=== PATIENT | male | born 1990 | race Caucasian/White ===

== ENCOUNTER 2018-08-03 12:58 | Inpatient (IN) | payer OTHER ==
[2018-08-03] MEDS ORDERED: Senna TAB PO PRN (15:15)
[2018-08-03] MEDS: Acetaminophen TAB* 325 MG PO PRN (15:47)
[2018-08-03] MEDS ORDERED: traMADol TAB* 50 MG PO PRN (16:20)
[2018-08-03] MEDS ORDERED: Magnesium Hydroxide LIQ* 30 ML UDC PO PRN (17:35)
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
[2018-08-03] MEDS: Docusate CAP* 100 MG PO SCH (21:14)
[2018-08-03] MEDS: Senna TAB PO SCH (21:14)
[2018-08-03] MEDS: Amoxicillin/Clavulanate TAB* 875 MG PO SCH (21:15)
[2018-08-03] MEDS: oxyCODONE TAB* 5 MG TAB PO PRN (21:17)
[2018-08-03] MEDS: Heparin VIAL(*) 5000 UNITS/ML VIAL (FIVE THOUSAND) SUBCUT SCH (21:18)
[2018-08-04] MEDS: Acetaminophen TAB* 325 MG PO PRN ×2 (00:04→06:11)
[2018-08-04] MEDS: Heparin VIAL(*) 5000 UNITS/ML VIAL (FIVE THOUSAND) SUBCUT SCH ×3 (06:11→21:37)
[2018-08-04] MEDS: oxyCODONE TAB* 5 MG TAB PO PRN ×4 (08:08→21:30)
[2018-08-04] MEDS: Amoxicillin/Clavulanate TAB* 875 MG PO SCH ×2 (08:09→22:14)
[2018-08-04] MEDS: Docusate CAP* 100 MG PO SCH ×2 (08:09→21:29)
[2018-08-04] MEDS ORDERED: Polyethylene Glycol 3350* 17 GM PACKET PO PRN (12:14)
[2018-08-04] MEDS: Cyclobenzaprine TAB* 10 MG PO PRN ×2 (14:44→21:30)
[2018-08-04] MEDS: Senna TAB PO SCH (21:29)
--- NOTE | 2018-08-04 21:46 | PN ---
Progress Note Date of Service: 08/04/18 Note: RENY SALINAS was visited. Therapy notes read and reviewed. He is having a bit of pain. Tramadol was ineffective, and oxycodone worked better but is constipating. Current Medications: Active Medications Generic Name Dose Route Start Last Admin Trade Name Freq PRN Reason Stop Dose Admin Acetaminophen 650 mg 08/03/18 15:15 08/04/18 06:11 Tylenol Tab* PO 650 mg Q6H PRN Administration FEVER/PAIN Amoxicillin/Clavulanate Potassium 875 mg 08/05/18 09:00 Augmentin 80 Mg/Ml Susp* Oralsyr PO BID SYLVIA Cyclobenzaprine HCl 10 mg 08/04/18 12:13 08/04/18 14:44 Flexeril Tab* PO 10 mg TID PRN Administration SPASMS Docusate Sodium 100 mg 08/03/18 21:00 08/04/18 08:09 Colace Cap* PO 100 mg BID SYLVIA Administration Heparin Sodium (Porcine) 5,000 units 08/03/18 22:00 08/04/18 14:32 Heparin Vial(*) SUBCUT 5,000 units Q8HR SYLVIA Administration Magnesium Hydroxide 30 ml 08/03/18 17:35 Milk Of Magnesia Liq* PO Q6H PRN CONSTIPATION Oxycodone HCl 5 mg 08/03/18 15:30 08/03/18 21:17 Roxycodone Tab* PO 5 mg Q4H PRN Administration PAIN - MODERATE TO SEVERE Oxycodone HCl 10 mg 08/03/18 23:14 08/04/18 16:44 Roxycodone Tab* PO 10 mg Q4H PRN Administration PAIN - SEVERE Polyethylene Glycol/Electrolytes 17 gm 08/04/18 12:14 Miralax* PO DAILY PRN CONSTIPATION Senna 2 tab 08/03/18 21:00 08/03/18 21:14 Senokot Tab* PO 2 tab BEDTIME SYLVIA Administration Tramadol HCl 50 mg 08/03/18 16:20 08/03/18 19:19 Ultram* PO 50 mg Q6H PRN Administration PAIN - MODERATE Vital Signs: Vital Signs Temp Pulse Resp BP Pulse Ox 98.5 F 101 16 128/61 98 08/04/18 14:47 08/04/18 14:47 08/04/18 19:17 08/04/18 14:47 08/04/18 14:47 Exam: GENERAL: Alert, in no distress LUNGS: Clear HEART: regular rhythm ABDOMEN: Soft, +BS EXTREMITIES: normal tone. peripheral pulses intact NEUROLOGIC: A&O. Moves all 4 extremities. Normal strength and sensation Assessment/Plan: 1. L1 Burst Fracture, S/P Percutaneous Pedicle Screw Fixation T11-L3: PT/OT. No heavy lifting 2. Closed Head INjury: Tested fine with TUCK POINTER 3. DVT Prophylaxis: Heparin S/Q 4. Constipation: Colace/Senokot. Miralax 5. Pneumonia: Augmentin, day /08/04/18 21:43
[2018-08-04] MEDS ORDERED: Amoxicillin/Clavulan* ORALSYR 80 MG/ML (400 MG/5 ML) PO ONE (22:00)
[2018-08-05] MEDS: Acetaminophen TAB* 325 MG PO PRN ×3 (04:53→21:46)
[2018-08-05] MEDS: oxyCODONE TAB* 5 MG TAB PO PRN ×3 (04:54→13:58)
[2018-08-05] MEDS: Heparin VIAL(*) 5000 UNITS/ML VIAL (FIVE THOUSAND) SUBCUT SCH ×3 (04:59→21:42)
[2018-08-05 06:01] LABS: ABS Basophils 0.1 10^3/ul (0-0.2); ABS Eosinophils 0.4 10^3/ul (0-0.6); ABS Lymphocytes 1.5 10^3/ul (1.0-4.8); ABS Monocytes 1.2 10^3/ul (0-0.8); ABS Neutrophils 6.6 10^3/ul (1.5-7.7); ABS Nucleated RBC 0 10^3/ul; Eosinophil % 4.2 %; Hematocrit 37 % (36-46); Hemoglobin 12.6 g/dL (14.0-18.0); Lymphocyte % 15.6 %; Mean Corpuscular HGB Conc 34 g/dL (31-36); Mean Corpuscular Hemoglobin 28 pg (27-31); Mean Corpuscular Volume 83 fL (80-94); Mean Platelet Volume 6.5 fL (7.4-10.4); Nucleated Red Blood Cells % 0.1; Platelet Count 372 10^3/uL (150-450); Red Blood Count 4.48 10^6 /uL (4.18-5.48); Red Cell Distribution Width 13 % (10.5-15); White Blood Count 9.8 10^3/uL (3.5-10.8)
[2018-08-05 06:20] LABS: Albumin 3.6 g/dL (3.2-5.2); Albumin/Globulin Ratio 1.1 (1-3); BUN/Creatinine Ratio 17.8 (8-20); Calcium 9.1 mg/dL (8.6-10.3); EGFR African American 157.1 (>60); EGFR Non-African American 129.9 (>60); Globulin 3.3 g/dL (2-4); Potassium 4.5 mmol/L (3.5-5.0); Total Bilirubin 0.6 mg/dL (0.2-1.0); Total Protein 6.9 g/dL (6.4-8.9)
[2018-08-05] MEDS: Docusate CAP* 100 MG PO SCH ×2 (07:42→21:45)
[2018-08-05] MEDS: Cyclobenzaprine TAB* 10 MG PO PRN ×2 (07:42→21:46)
[2018-08-05] MEDS: Amoxicillin/Clavulan* ORALSYR 80 MG/ML (400 MG/5 ML) PO SCH ×2 (07:43→21:43)
--- NOTE | 2018-08-05 12:09 | PN ---
Progress Note Date of Service: 08/05/18 Note: RENY SALINAS was visited. Nursing and therapy notes read and reviewed. No chest pain, shortness of breath or abdominal pain. Pain in back lessening with time. No leg numbness, tingling or weakness. Current Medications: Active Medications Generic Name Dose Route Start Last Admin Trade Name Freq PRN Reason Stop Dose Admin Acetaminophen 650 mg 08/03/18 15:15 08/05/18 09:55 Tylenol Tab* PO 650 mg Q6H PRN Administration FEVER/PAIN Amoxicillin/Clavulanate Potassium 875 mg 08/05/18 09:00 08/05/18 07:43 Augmentin 80 Mg/Ml Susp* Oralsyr PO 875 mg BID SYLVIA Administration Cyclobenzaprine HCl 10 mg 08/04/18 12:13 08/05/18 07:42 Flexeril Tab* PO 10 mg TID PRN Administration SPASMS Docusate Sodium 100 mg 08/03/18 21:00 08/05/18 07:42 Colace Cap* PO 100 mg BID SYLVIA Administration Heparin Sodium (Porcine) 5,000 units 08/03/18 22:00 08/05/18 04:59 Heparin Vial(*) SUBCUT 5,000 units Q8HR SYLVIA Administration Magnesium Hydroxide 30 ml 08/03/18 17:35 Milk Of Magnesia Liq* PO Q6H PRN CONSTIPATION Oxycodone HCl 5 mg 08/03/18 15:30 08/04/18 21:30 Roxycodone Tab* PO 5 mg Q4H PRN Administration PAIN - MODERATE TO SEVERE Oxycodone HCl 10 mg 08/03/18 23:14 08/05/18 09:55 Roxycodone Tab* PO 10 mg Q4H PRN Administration PAIN - SEVERE Polyethylene Glycol/Electrolytes 17 gm 08/04/18 12:14 08/05/18 07:58 Miralax* PO 17 gm DAILY PRN Administration CONSTIPATION Senna 2 tab 08/03/18 21:00 08/04/18 21:29 Senokot Tab* PO 2 tab BEDTIME SYLVIA Administration Tramadol HCl 50 mg 08/03/18 16:20 08/03/18 19:19 Ultram* PO 50 mg Q6H PRN Administration PAIN - MODERATE Vital Signs: Vital Signs Temp Pulse Resp BP Pulse Ox 98.2 F 85 17 123/74 96 08/05/18 04:55 08/05/18 04:55 08/05/18 09:55 08/05/18 04:55 08/05/18 04:55 Lab Results: Laboratory Results - last 24 hr 08/05/18 08/05/18 05:28 05:28 WBC 9.8 RBC 4.48 Hgb 12.6 L Hct 37 MCV 83 MCH 28 MCHC 34 RDW 13 Plt Count 372 MPV 6.5 L Neut % (Auto) 67.5 Lymph % (Auto) 15.6 [place] % (Auto) 12.0 Eos % (Auto) 4.2 Baso % (Auto) 0.7 Absolute Neuts (auto) 6.6 Absolute Lymphs (auto) 1.5 Absolute Monos (auto) 1.2 H Absolute Eos (auto) 0.4 Absolute Basos (auto) 0.1 Absolute Nucleated RBC 0 Nucleated RBC % 0.1 Sodium 134 L Potassium 4.5 Chloride 100 L Carbon Dioxide 25 Anion Gap 9 BUN 13 Creatinine 0.73 Est GFR ( Amer) 157.1 Est GFR (Non-Af Amer) 129.9 BUN/Creatinine Ratio 17.8 Glucose 107 H Calcium 9.1 Total Bilirubin 0.60 AST 232 H ALT 278 H Alkaline Phosphatase 89 Total Protein 6.9 Albumin 3.6 Globulin 3.3 Albumin/Globulin Ratio 1.1 Exam: GENERAL: Alert and appropriate. No acute distress. LUNGS: Clear to auscultation bilaterally. HEART: regular rate and rhythm ABDOMEN: Soft, + bowel sounds, non-tender, non-distended EXTREMITIES: no edema NEUROLOGIC: BLE motor 5/5 with normal sensation. SKIN: surgical site is clean with steristrips intact. Assessment/Plan: 1. L1 Burst Fracture, S/P Percutaneous Pedicle Screw Fixation T11-L3: PT/OT. No lifting >10#. 2. Closed Head Injury: Tested fine with CHICKEN DRESSER 3. DVT Prophylaxis: Heparin S/Q. I reinforced with him the rationale and importance. He will tolerate it. 4. Constipation: Colace/Senokot. Miralax. MOM, lactulose 5. Pneumonia: Augmentin, day 3/7 6. Transaminitis: unclear if from trauma or meds. No symptoms. Recheck tomorrow. 7. Estimated LOS: IP today 08/05/18 12:06
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
[2018-08-05] MEDS: Senna TAB PO SCH (21:46)
--- NOTE | 2018-08-05 23:11 | PN ---
Progress Note Date of Service: 08/05/18 Note: RENY SALINAS was visited after I was called with report of a tick attached to him. He took a shower this morning and does not believe it was there at that time. No pain. No fevers, chills, sweats or malaise. Ticks are common where he lives and he often removes them from his animals. His family was visiting today and he thinks it may have come from them. Current Medications: Active Medications Generic Name Dose Route Start Last Admin Trade Name Freq PRN Reason Stop Dose Admin Acetaminophen 650 mg 08/03/18 15:15 08/05/18 21:46 Tylenol Tab* PO 650 mg Q6H PRN Administration FEVER/PAIN Amoxicillin/Clavulanate Potassium 875 mg 08/05/18 09:00 08/05/18 21:43 Augmentin 80 Mg/Ml Susp* Oralsyr PO 875 mg BID SYLVIA Administration Cyclobenzaprine HCl 10 mg 08/04/18 12:13 08/05/18 21:46 Flexeril Tab* PO 10 mg TID PRN Administration SPASMS Docusate Sodium 100 mg 08/03/18 21:00 08/05/18 21:45 Colace Cap* PO 100 mg BID SYLVIA Administration Heparin Sodium (Porcine) 5,000 units 08/03/18 22:00 08/05/18 21:42 Heparin Vial(*) SUBCUT Not Given Q8HR SYLVIA Lactulose 30 ml 08/05/18 12:09 Lactulose* PO QID PRN CONSTIPATION Magnesium Hydroxide 30 ml 08/03/18 17:35 08/05/18 21:44 Milk Of Magnesia Liq* PO 30 ml Q6H PRN Administration CONSTIPATION Oxycodone HCl 5 mg 08/03/18 15:30 08/04/18 21:30 Roxycodone Tab* PO 5 mg Q4H PRN Administration PAIN - MODERATE TO SEVERE Oxycodone HCl 10 mg 08/03/18 23:14 08/05/18 13:58 Roxycodone Tab* PO 10 mg Q4H PRN Administration PAIN - SEVERE Polyethylene Glycol/Electrolytes 17 gm 08/06/18 09:00 Miralax* PO DAILY SYLVIA Senna 2 tab 08/03/18 21:00 08/05/18 21:46 Senokot Tab* PO 2 tab BEDTIME SYLVIA Administration Tramadol HCl 50 mg 08/03/18 16:20 08/03/18 19:19 Ultram* PO 50 mg Q6H PRN Administration PAIN - MODERATE Vital Signs: Vital Signs Temp Pulse Resp BP Pulse Ox 98.4 F 89 16 143/74 98 08/05/18 14:41 08/05/18 14:41 08/05/18 21:46 08/05/18 14:41 08/05/18 14:41 Lab Results: Laboratory Results - last 24 hr 08/05/18 08/05/18 05:28 05:28 WBC 9.8 RBC 4.48 Hgb 12.6 L Hct 37 MCV 83 MCH 28 MCHC 34 RDW 13 Plt Count 372 MPV 6.5 L Neut % (Auto) 67.5 Lymph % (Auto) 15.6 [place] % (Auto) 12.0 Eos % (Auto) 4.2 Baso % (Auto) 0.7 Absolute Neuts (auto) 6.6 Absolute Lymphs (auto) 1.5 Absolute Monos (auto) 1.2 H Absolute Eos (auto) 0.4 Absolute Basos (auto) 0.1 Absolute Nucleated RBC 0 Nucleated RBC % 0.1 Sodium 134 L Potassium 4.5 Chloride 100 L Carbon Dioxide 25 Anion Gap 9 BUN 13 Creatinine 0.73 Est GFR ( Amer) 157.1 Est GFR (Non-Af Amer) 129.9 BUN/Creatinine Ratio 17.8 Glucose 107 H Calcium 9.1 Total Bilirubin 0.60 AST 232 H ALT 278 H Alkaline Phosphatase 89 Total Protein 6.9 Albumin 3.6 Globulin 3.3 Albumin/Globulin Ratio 1.1 Exam: Focused exam for tick: In right inguinal/pubic area there is an engorged tick approximately 5mm in length with surrounding erythema of the skin. Procedure: tick removal kit obtained from ED. Tick was removed. Part of 1 chlicerae was left in skin and mostly removed with tweezers after. He had minimal bleeding after removing the chilcerae. Area was cleansed and dressed. Assessment/Plan: 1. L1 Burst Fracture, S/P Percutaneous Pedicle Screw Fixation T11-L3: PT/OT. No lifting >10#. 2. Closed Head Injury: Tested fine with MYSQL DATABASE ADMINISTRATOR 3. DVT Prophylaxis: Heparin S/Q. I reinforced with him the rationale and importance. He will tolerate it. 4. Constipation: Colace/Senokot. Miralax. MOM, lactulose 5. Pneumonia: Augmentin, day 3/7 6. Transaminitis: unclear if from trauma or meds. No symptoms. Recheck tomorrow. 7. Estimated LOS: tomorrow 8. Tick bite: given engorgement level and unclear timing of exposure will give 1x prophylactic dose of doxycycline 200mg. He was advised to f/u with his pcp sooner if he develops any fevers, malaise, myalgias or arthralgias. 08/05/18 23:12
[2018-08-05] MEDS ORDERED: DOXYcycline CAP(*) 100 MG PO ONE (23:14)
[2018-08-06] MEDS: Acetaminophen TAB* 325 MG PO PRN ×2 (02:41→09:09)
[2018-08-06] MEDS: Cyclobenzaprine TAB* 10 MG PO PRN (05:45)
[2018-08-06 05:49] LABS: Albumin 3.7 g/dL (3.2-5.2); Albumin/Globulin Ratio 1.1 (1-3); BUN/Creatinine Ratio 19.5 (8-20); EGFR African American 147.8 (>60); EGFR Non-African American 122.1 (>60); Globulin 3.5 g/dL (2-4); Potassium 4.6 mmol/L (3.5-5.0); Total Bilirubin 0.5 mg/dL (0.2-1.0); Total Protein 7.2 g/dL (6.4-8.9)
[2018-08-06] MEDS: Heparin VIAL(*) 5000 UNITS/ML VIAL (FIVE THOUSAND) SUBCUT SCH (05:57)
[2018-08-06 06:39] VITALS: BP 122/70
[2018-08-06] MEDS ORDERED: Polyethylene Glycol 3350* 17 GM PACKET PO SCH (09:00)
[2018-08-06] MEDS: Amoxicillin/Clavulan* ORALSYR 80 MG/ML (400 MG/5 ML) PO SCH (09:09)
[2018-08-06] MEDS: Docusate CAP* 100 MG PO SCH (09:09)
[2018-08-06] MEDS: oxyCODONE TAB* 5 MG TAB PO PRN (09:10)
--- NOTE | 2018-08-06 09:54 | PN ---
Progress Note Date of Service: 08/06/18 Note: RENY SALINAS was visited. Nursing and therapy notes read and reviewed. No chest pain, shortness of breath or abdominal pain. Current Medications: Active Medications Generic Name Dose Route Start Last Admin Trade Name Freq PRN Reason Stop Dose Admin Acetaminophen 650 mg 08/03/18 15:15 08/06/18 09:09 Tylenol Tab* PO 650 mg Q6H PRN Administration FEVER/PAIN Amoxicillin/Clavulanate Potassium 875 mg 08/05/18 09:00 08/06/18 09:09 Augmentin 80 Mg/Ml Susp* Oralsyr PO 875 mg BID SYLVIA Administration Cyclobenzaprine HCl 10 mg 08/04/18 12:13 08/06/18 05:45 Flexeril Tab* PO 10 mg TID PRN Administration SPASMS Docusate Sodium 100 mg 08/03/18 21:00 08/06/18 09:09 Colace Cap* PO 100 mg BID SYLVIA Administration Heparin Sodium (Porcine) 5,000 units 08/03/18 22:00 08/06/18 05:57 Heparin Vial(*) SUBCUT Not Given Q8HR SYLVIA Lactulose 30 ml 08/05/18 12:09 Lactulose* PO QID PRN CONSTIPATION Magnesium Hydroxide 30 ml 08/03/18 17:35 08/05/18 21:44 Milk Of Magnesia Liq* PO 30 ml Q6H PRN Administration CONSTIPATION Oxycodone HCl 5 mg 08/03/18 15:30 08/06/18 09:10 Roxycodone Tab* PO 5 mg Q4H PRN Administration PAIN - MODERATE TO SEVERE Oxycodone HCl 10 mg 08/03/18 23:14 08/05/18 13:58 Roxycodone Tab* PO 10 mg Q4H PRN Administration PAIN - SEVERE Polyethylene Glycol/Electrolytes 17 gm 08/06/18 09:00 08/06/18 09:09 Miralax* PO 17 gm DAILY SYLVIA Administration Senna 2 tab 08/03/18 21:00 08/05/18 21:46 Senokot Tab* PO 2 tab BEDTIME SYLVIA Administration Tramadol HCl 50 mg 08/03/18 16:20 08/03/18 19:19 Ultram* PO 50 mg Q6H PRN Administration PAIN - MODERATE Vital Signs: Vital Signs Temp Pulse Resp BP Pulse Ox 98.1 F 85 16 122/70 98 08/06/18 05:46 08/06/18 05:46 08/06/18 09:10 08/06/18 05:46 08/06/18 05:46 Lab Results: Laboratory Results - last 24 hr 08/06/18 04:57 Sodium 133 L Potassium 4.6 Chloride 100 L Carbon Dioxide 28 Anion Gap 5 BUN 15 Creatinine 0.77 Est GFR ( Amer) 147.8 Est GFR (Non-Af Amer) 122.1 BUN/Creatinine Ratio 19.5 Glucose 103 H Calcium 9.0 Total Bilirubin 0.50 AST 171 H ALT 312 H Alkaline Phosphatase 92 Total Protein 7.2 Albumin 3.7 Globulin 3.5 Albumin/Globulin Ratio 1.1 Exam: GENERAL: Alert and appropriate. No acute distress. LUNGS: Clear to auscultation bilaterally. HEART: regular rate and rhythm ABDOMEN: Soft, + bowel sounds, non-tender, non-distended EXTREMITIES: no edema NEUROLOGIC: BLE motor 5/5 with normal sensation. SKIN: surgical site is clean with steristrips intact. Area of tick bite in right groin looks benign and dressing was removed. Assessment/Plan: 1. L1 Burst Fracture, S/P Percutaneous Pedicle Screw Fixation T11-L3: Continue HEP and can d/w Dr. Prasad additional outpatient PT in f/u. No lifting >10#. f /u with Dr. Prasad 08/17/18. I advised of weaning off oxycodone as tolerated and warned of addiction/dependency. Further prescriptions will be from Dr. Prasad or PCP if needed. 2. Closed Head Injury: Tested fine with SUBASSEMBLIES WIRER 3. DVT Prophylaxis: Heparin S/Q. 4. Constipation: Colace/Senokot. Miralax. MOM, lactulose 5. Pneumonia: Augmentin, day 4/7 6. Transaminitis: AST improved, but ALT slightly worse. He will f/u with PCP after discharge. Likely due to medications/antibiotic. 7. Estimated LOS: d/c home today. 8. Tick bite: s/p doxycycline 200mg x1. He was advised to f/u with his pcp sooner if he develops any fevers, malaise, myalgias, or rash. 08/06/18 09:50
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
== END 2018-08-06 11:05 | disposition home or self-care (01) | DRG 860 ==
LOC: EDSTATUS 13:00 → PMRU 14:25
PROVIDERS: ADMIT Physical Medicine & Rehabilitation; ATTEND Physical Medicine & Rehabilitation
PROC: 0HCAXZZ Extirpation of Matter from Inguinal Skin, External Approach (ICD-10-PCS; principal; 2018-08-03)
PROC: F07Z5ZZ Bed Mobility Treatment (ICD-10-PCS; 2018-08-03)
PROC: F07Z9ZZ Gait Training/Functional Ambulation Treatment (ICD-10-PCS; 2018-08-03)
PROC: F07Z8ZZ Transfer Training Treatment (ICD-10-PCS; 2018-08-03)
PROC: F08Z0ZZ Bathing/Showering Techniques Treatment (ICD-10-PCS; 2018-08-03)
PROC: F08Z1ZZ Dressing Techniques Treatment (ICD-10-PCS; 2018-08-03)
PROC: F08Z3ZZ Feeding/Eating Treatment (ICD-10-PCS; 2018-08-03)
DX: S32.011D Stable burst fracture of first lumbar vertebra, subsequent encounter for fracture with routine healing (principal); J18.9 Pneumonia, unspecified organism; V29.9XXD Motorcycle rider (driver) (passenger) injured in unspecified traffic accident, subsequent encounter; S30.861A Insect bite (nonvenomous) of abdominal wall, initial encounter; W57.XXXA Bitten or stung by nonvenomous insect and other nonvenomous arthropods, initial encounter; R74.0 Nonspecific elevation of levels of transaminase and lactic acid dehydrogenase [LDH]; K59.00 Constipation, unspecified; M25.461 Effusion, right knee; S09.90XD Unspecified injury of head, subsequent encounter; Y92.230 Patient room in hospital as the place of occurrence of the external cause
CPT/HCPCS: 36415; 80053; 85025; A9270-GY; J1644